=== PATIENT | female | born 1940 | race Caucasian/White ===

== ENCOUNTER 2020-02-14 10:15 | Inpatient (IN) ==
[2020-02-14] MEDS ORDERED: SALINE 3% 15 ML NEB TX ONE (13:23)
[2020-02-14] MEDS ORDERED: SALINE 3% 15 ML NEB TX NEB ONE (13:30)
[2020-02-14] MEDS ORDERED: TUSSIONEX PENNKINETIC SUSP PO PRN (14:06)
[2020-02-14] MEDS ORDERED: ZOFRAN INJ 4 MG VIAL IVP PRN (14:06)
[2020-02-14] MEDS ORDERED: FORTAZ or TAZICEF VIAL INJ 1 G in NS 100 ML IV + SPIKE MINIBAG* 100 ML IV SCH (14:06)
[2020-02-14] MEDS ORDERED: HumuLIN R SUBCUT PRN (14:06)
[2020-02-14] MEDS ORDERED: LEVAQUIN PREMIX IV 500 MG 500 MG/100 ML BAG IV SCH (14:06)
[2020-02-14] MEDS ORDERED: PEPCID 20 MG IV PREMIX* 20 MG/50 ML BAG IV SCH (14:06)
[2020-02-14] MEDS: ROBITUSSIN DM PO SCH ×3 (14:41→20:33)
[2020-02-14] MEDS ORDERED: NS 1/2 1000 ML IV 1,000 ML IV ONE (14:44)
[2020-02-14] MEDS: PROTONIX INJ 40 MG VIAL IVP SCH ×2 (14:58→20:32)
[2020-02-14] MEDS: VSL#3 PO SCH (14:58)
[2020-02-14] MEDS: NS 1/2 1000 ML IV 1,000 ML IV SCH (14:58)
[2020-02-14 15:06] LABS: BASOPHILS % (AUTO) 0.2 % (0.2-1.0); EOSINOPHILS # (AUTO) 1.8 x10^3/uL (0.0-0.2); EOSINOPHILS % (AUTO) 12.1 % (0.9-2.9); HEMATOCRIT 37.9 % (36.0-47.0); HEMOGLOBIN 12.5 g/dL (12.0-16.0); LYMPHOCYTES # (AUTO) 3.5 X10^3/uL (1.3-2.9); LYMPHOCYTES % (AUTO) 23.4 % (21.0-51.0); MEAN CORPUSCULAR HGB CONC 33.1 g/dL (33.0-35.0); MEAN CORPUSCULAR VOLUME 93.5 fL (80.0-100.0); MEAN PLATELET VOLUME 10.2 fL (7.4-11.0); MONOCYTES # (AUTO) 1.1 x10^3/uL (0.3-0.8); MONOCYTES % (AUTO) 7.2 % (0.0-13.0); NEUTROPHILS # (AUTO) 8.5 x10^3/uL (2.2-4.8); NEUTROPHILS % (AUTO) 57.1 % (42.0-75.0); PLATELET COUNT 258 X10^3/uL (150.0-450.0); RED BLOOD COUNT 4.05 X10^6/uL (3.5-5.4); RED CELL DISTRIBUTION WIDTH 12.9 % (11.6-16.5); WHITE BLOOD COUNT 14.9 X10^3/uL (3.6-10.0)
--- NOTE | 2020-02-14 15:24 | RAD ---
HISTORYPneumoniaSTUDYCHEST, PA/LAT ADULTCOMPARISONNoneFINDINGSThe trachea is midline. The cardiac silhouette is mildly enlarged. The lungs are clear without focal infiltrate or effusion. The bony thorax is unremarkable.IMPRESSIONNo acute cardiopulmonary disease.Electronically signed by: WENDY POWERS (Feb 14, 2020 15:22:39)
[2020-02-14 15:25] LABS: ALANINE AMINOTRANSFERASE 17 Units/L (12-78); ALKALINE PHOSPHATASE 68 Units/L (46-116); ASPARTATE AMINO TRANSFERASE 10 Units/L (15-37); BLOOD UREA NITROGEN 31 mg/dL (7-18); CALCIUM 9.6 mg/dL (8.5-10.1); CARBON DIOXIDE 23.8 mmol/L (21-32); CHLORIDE 104 mmol/L (98-107); CKMB % 3.4 % (<4); CREATINE KINASE 38 Units/L (26-192); CREATINE KINASE MB 1.3 ng/mL (0-4.0); CREATININE 1.79 mg/dL (0.55-1.02); SODIUM 140 mmol/L (136-145); TOTAL PROTEIN 7.9 g/dL (6.4-8.2); TROPONIN I < 0.02 ng/mL (0-1.5); eGFR NON BLACK RACES 29 (>60)
[2020-02-14 17:29] VITALS: BMI 28.5
[2020-02-14 18:43] LABS: CKMB % 2.8 % (<4); CREATINE KINASE 39 Units/L (26-192); CREATINE KINASE MB 1.1 ng/mL (0-4.0); TROPONIN I < 0.02 ng/mL (0-1.5)
[2020-02-14] MEDS ORDERED: DUONEB 0.5 MG/3 MG (3 mL) NEB ONE (19:16)
[2020-02-14] MEDS ORDERED: SNACK - Diabetic Appropriate PO SCH (20:00)
[2020-02-14] MEDS ORDERED: PULMICORT NEB TX 0.5 MG NEB SCH (21:00)
[2020-02-14] MEDS: DUONEB 0.5 MG/3 MG (3 mL) NEB SCH (21:07)
[2020-02-14 22:30] LABS: CKMB % 3.9 % (<4); CREATINE KINASE 31 Units/L (26-192); CREATINE KINASE MB 1.2 ng/mL (0-4.0); TROPONIN I < 0.02 ng/mL (0-1.5)
[2020-02-15] MEDS: NS 1/2 1000 ML IV 1,000 ML IV SCH ×2 (05:18→07:25)
[2020-02-15] MEDS: DUONEB 0.5 MG/3 MG (3 mL) NEB SCH (05:40)
[2020-02-15] MEDS ORDERED: NS 1/2 1000 ML IV 1,000 ML IV ONE (06:02)
[2020-02-15 06:11] LABS: BASOPHILS % (AUTO) 0.2 % (0.2-1.0); EOSINOPHILS # (AUTO) 1.9 x10^3/uL (0.0-0.2); EOSINOPHILS % (AUTO) 16.3 % (0.9-2.9); HEMATOCRIT 32.3 % (36.0-47.0); HEMOGLOBIN 10.9 g/dL (12.0-16.0); LYMPHOCYTES # (AUTO) 3.2 X10^3/uL (1.3-2.9); MEAN CORPUSCULAR HEMOGLOBIN 31.6 pg (27.0-34.0); MEAN CORPUSCULAR HGB CONC 33.9 g/dL (33.0-35.0); MEAN CORPUSCULAR VOLUME 93.3 fL (80.0-100.0); MEAN PLATELET VOLUME 10.2 fL (7.4-11.0); MONOCYTES # (AUTO) 0.8 x10^3/uL (0.3-0.8); MONOCYTES % (AUTO) 7.3 % (0.0-13.0); NEUTROPHILS # (AUTO) 5.6 x10^3/uL (2.2-4.8); NEUTROPHILS % (AUTO) 48.2 % (42.0-75.0); PLATELET COUNT 200 X10^3/uL (150.0-450.0); RED BLOOD COUNT 3.46 X10^6/uL (3.5-5.4); RED CELL DISTRIBUTION WIDTH 12.8 % (11.6-16.5); WHITE BLOOD COUNT 11.5 X10^3/uL (3.6-10.0)
[2020-02-15 06:36] LABS: ALANINE AMINOTRANSFERASE 18 Units/L (12-78); ALBUMIN 3.3 g/dL (3.4-5.0); ALKALINE PHOSPHATASE 58 Units/L (46-116); ASPARTATE AMINO TRANSFERASE 13 Units/L (15-37); BLOOD UREA NITROGEN 31 mg/dL (7-18); CALCIUM 9.2 mg/dL (8.5-10.1); CARBON DIOXIDE 24.8 mmol/L (21-32); CHLORIDE 107 mmol/L (98-107); COR CA(FOR HYPOALB) 9.8 mg/dL (8.5-10.1); CREATININE 1.82 mg/dL (0.55-1.02); SODIUM 140 mmol/L (136-145); TOTAL PROTEIN 6.6 g/dL (6.4-8.2); eGFR NON BLACK RACES 29 (>60)
--- NOTE | 2020-02-15 07:18 | RAD ---
HISTORYSOBSTUDYAP [id number] normal heart size. There is now a mild diffuse bilateral i nterstitial increase throughout the lungs without evidence for segmental or lobar consolidation. No p neumothorax or pleural fluid seen.IMPRESSIONInterval increase in interstitial pulmonary pattern is no nspecific. It may be related to relative hypo inflation of the lungs although a developing inflammato ry process could produce similar findings. Correlate clinically with follow-up as appropriate.Electro nically signed by: ABEL GARDINER (Feb 15, 2020 07:16:25)
[2020-02-15 08:05] VITALS: BP 124/58
[2020-02-15] MEDS ORDERED: PEPCID 20 MG IV PREMIX* 20 MG/50 ML BAG IV SCH (09:00)
[2020-02-15] MEDS ORDERED: FORTAZ or TAZICEF VIAL INJ 1 G in NS 100 ML IV + SPIKE MINIBAG* 100 ML IV SCH (09:00)
[2020-02-15] MEDS ORDERED: LEVAQUIN PREMIX IV 250 MG 250 MG/50 ML BAG IV SCH (09:00)
[2020-02-15] MEDS: PROTONIX INJ 40 MG VIAL IVP SCH (09:40)
[2020-02-15] MEDS: VSL#3 PO SCH (09:41)
[2020-02-15] MEDS: ROBITUSSIN DM PO SCH (09:41)
[2020-02-15] MEDS ORDERED: PREVNAR 13 IM ONE (10:00)
[2020-02-15] MEDS ORDERED: AFLURIA II4 or FLUARIX II4 IM ONE (10:00)
--- NOTE | 2020-03-02 08:34 | DR.CARTERS ---
Short Stay Summary - Admission Date Date of Admission: 02/14/20 - Discharge Date Discharge Date: 02/15/20 - Admission Diagnoses (1) Bronchopneumonia Status: Acute (2) Chest pain, rule out acute myocardial infarction Status: Acute (3) Nausea Status: Acute - Hospital Course Hospital Course: IS A 79 YEAR OLD PATIENT OF OURS WHO PRESENTED TO THE HOSPITAL A DIRECT ADMISSION DUE TO COMPLAINTS OF DIZZINESS, EPIGASTRIC ABDOMINAL PAIN, NAUSEA, RIGHT EAR PAIN, SHORTNESS OF BREATH, NON-PRODUCTIVE COUGH, AND CHEST PAIN. SYMPTOMS STARTED ABOUT TWO WEEKS PRIOR TO ADMISSION. CHEST PAIN IS DESCRIBED DULL, INTERMITTENT, AND WAS RATED A 4/10 ON ADMISSION. OUTPATIENT LABS WERE OBTAINED PRIOR TO ADMISSION AND REVEALED AN ELEVATED WBC OF 28,000. SHE HAD BEEN TAKING AMOXICILLIN 500MG PO BID SINCE 02/05/20 FOR AN EAR INFECTION. SHE WAS SWABBED FOR COVID-19 PRIOR TO ADMISSION AND WAS NEGATIVE. ON ARRIVAL TO THE HOSPITAL, VITALS WERE 97.6-68-20-98%RA-164/68. LABS WERE OBTAINED. ABNORMAL LAB VALUES INCLUDED THE FOLLOWING: WBC 14.9, BUN 31, CREATININE 1.79, FERRITIN 292, AST 10. CARDIAC ENZYMES WERE WITHIN NORMAL LIMITS. BLOOD AND SPUTUM CULTURES WERE SET UP. A CHEST XRAY WAS OBTAINED AND REVEALED: The trachea is midline. The cardiac silhouette is mildly enlarged. The lungs are clear without focal infiltrate or effusion. The bony thorax is unremarkable. EKG REVEALED: SINUS RHYTHM WITH HR 55. SHE WAS STARTED ON NORMAL SALINE AT 75 ML/HR, FORTAZ 1G IV DAILY, LEVAQUIN 750MG IV DAILY, PEPCID 20MG IV DAILY, PULMICORT NEBS BID, DUONEBS TID FOR TREATMENT OF BRONCHOPNEUMONIA AND CHEST PAIN. WE PLANNED TO OBTAIN SERIAL CARDIAC ENZYMES AND EKGS, FOLLOW UP WITH AM LABS AND CHEST XRAY, AND CONTINUE TO MONITOR. ON THE MORNING FOLLOWING ADMISSION, PATIENT IS ALERT AND ORIENTED, LYING IN BED ON MORNING ROUDNS. SHE CONTINUES WITH A NON-PRODUCTIVE COUGH, BUT DENIES SHORTNESS OF BREATH, CHEST PAIN, OR ANY OTHER SYMPTOMS. ON EXAMINATION, HEART IS REGULAR IN RATE AND RHYTHM. BILATERAL LUNGS ARE NOTED WITH DIMINISHED LUNG SOUNDS THROUGHOUT. ABDOMEN IS ROUND, SOFT, AND NON-TENDER WITH NORMAL BOWEL SOUNDS NOTED IN ALL QUADRANTS. HER VITALS THIS MORNING ARE: 97.7-71-20-97%RA-124/58. LABS WERE OBTAINED. ABNORMAL LAB VALUES INCLUDE THE FOLLOWING: WBC 11.5, RBC 3.46, HGB 10.9, HCT 32.3, BUN 31, CREATININE 1.82, AST 13, ALBUMIN 3.3. BLOOD AND SPUTUM CULTURES WERE SET UP. A CHEST XRAY WAS OBTAINED AND REVEALED: Interval increase in interstitial pulmonary pattern is nonspecific. It may be related to relative hypo inflation of the lungs although a developing inflammatory process could produce similar findings. SHE IS REQUESTING DISCHARGE HOME. WE PLANNED FOR DISCHARGE. INSTRUCTIONS FOR FOLLOW UP WERE DISCUSSED WITH PATIENT AND FAMILY. SHE WAS DISCHARGED HOME ON HER REGULAR MEDICATIONS AND INSTRUCTED TO CONTINUE HER COURSE OF AMOXICILLIN. SHE WAS INSTRUCTED TO FOLLOW UP IN THE OFFICE THIS WEEK. SHE WAS DISCHARGED HOME WITH FAMILY IN STABLE CONDITION. TIME SPENT ON CLINICAL ASSESSMENT, REVIEWING LABS, AND IMAGING, DECISION MAKING, PREPARING DISCHARGE INSTRUCTIONS AND PAPERS WAS GREATER THAN 75 MINUTES. - Discharge Medications Discharge Medications: Home Medication List gabapentin [Neurontin] 300 mg PO BID 02/14/20 [History] hydroxychloroquine 200 mg PO DAILY 02/14/20 [History] losartan-hydrochlorothiazide 1 tab PO DAILY 02/14/20 [History] metformin [Glucophage] 500 mg PO DAILY 02/14/20 [History] pantoprazole 40 mg PO BID 02/14/20 [History] Prescriptions: - Discharge Plan Disposition: 01 HOME, SELF-CARE Condition: Stable - Follow up/Referrals Follow up/Referrals: Jose Ramon Pantoja [Primary Care Provider] - 1 WEEK - Instructions Instructions: Dehydration, Adult, [id number], Vertigo, [id number], Type 2 Diabetes Mellitus, Self Care, Adult, [id number], Community-Acquired Pneumonia, Adult, [id number] Additional Instructions: Continue current medications as prescribed. Activity as tolerated. Diet as tolerated. Drink plenty of fluids. Follow up with Dr. Pantoja in 1 week or sooner if needed. Forms: Excuse From Work or School, Precautions for COVID19, Patient Portal, Social Distancing
== END 2020-02-15 11:30 | disposition home or self-care (01) | DRG 195 ==
LOC: MED/SURG 11:16
PROVIDERS: ADMIT Internal Medicine; ATTEND Internal Medicine
DX: M05.70 Rheumatoid arthritis with rheumatoid factor of unspecified site without organ or systems involvement; R79.89 Other specified abnormal findings of blood chemistry; R11.0 Nausea; R06.02 Shortness of breath; R07.89 Other chest pain; Z20.828 Contact with and (suspected) exposure to other viral communicable diseases; J18.8 Other pneumonia, unspecified organism; R42 Dizziness and giddiness